=== PATIENT | male | born 2000 | race Caucasian/White ===

== ENCOUNTER 2025-06-20 02:29 | Emergency (ER) | payer SELFPAY ==
[2025-06-20 02:35] VITALS: BP 120/75; PULSE 78; RESP 17; TEMP 36.6; O2SAT 98; BMI 30.7
--- OUTSIDE RECORDS SUMMARY | 2025-06-20 02:40 | XMS_ITS | Patient Health Record ---
Author Organization [facility] Address [address] [place] [address] Care Team Providers Care Pricing Analyst Name Role Phone PAT ALCANTAR Primary Care Provider Reason For Referral No Information Medications Medication SIG (Take, Route, Frequency, Duration) Notes Start Date End Date Status Cyclobenzaprine HCl 10 MG 1 tablet Orall y 2 times a day; Duration: 14 days 02/12/2020 Active Flonase Allergy Relief 50 MCG/ACT 1 spray in each nostril Nasally Once a day; Duration: 30 day(s) 08/26/2016 Not-Taking Social History Cessation Question Answer Notes Date Tobacco Cessation Provided: 02/12/2020 interested in quitting Problems Problem Type SNOMED Code ICD Code Onset Dates Problem Status W/U Status Risk Notes Problem 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
--- NOTE | 2025-06-20 05:08 | W.ED.EAR ---
HPI - Ear Problem General: Chief complaint: Ear Stated complaint: L ear pain and jaw Time Seen by Provider: 06/20/25 03:11 History of Present Illness: 24-year-old male with one week of sinus congestion awoke at midnight today with acute left ear pain that has progressively worsened despite hot and cold compresses. Over the last 30?45 minutes the pain has radiated into the left jaw. Denies prior similar episodes, water exposure, or recent trauma. No self-medication taken. Reports 'bad teeth' mostly on the right side but none currently painful. No fevers, sore throat, nasal discharge beyond prior congestion, cough, shortness of breath, or other complaints. Related Data Previous Rx's ?Medication ?Instructions ?Recorded amoxicillin 875 mg-potassium 1 tab PO Q12H #10 tabs 06/20/25 clavulanate 125 mg tablet Physical Exam Const: COMMON NORMALS: no acute distress, patient oriented x3 and alert HENMT: OTHER: Left ear tympanic membrane is bulging with loss of light reflex and purulence behind the drum consistent with otitis media Eye: COMMON NORMALS: Equal, round and reactive pupils present, EOMs intact bilaterally and no scleral icterus PUPIL: Yes Equal, round and reactive pupils present Resp: COMMON NORMALS: normal respiratory effort and No retractions Cardio: COMMON NORMALS: regular rate, regular rhythm and No murmurs present (Cardio) RATE: regular rate RHYTHM: regular rhythm GI: COMMON NORMALS: Normal to inspection, nondistended, normoactive bowel sounds present, Soft to palpation and non-tender PALPATION: Yes Soft to palpation Neuro: COMMON NORMALS: patient oriented x3 SENSORIUM/ORIENTATION: Yes alert Skin: COMMON NORMALS: no rashes or lesions noted GENERAL SKIN EXAM: no rashes or lesions noted Course Vital Signs: Vital signs: Vital Signs Temperature 97.9 F 06/20/25 02:35 Pulse Rate 78 06/20/25 02:35 Respiratory Rate 17 06/20/25 02:35 Blood Pressure 120/75 06/20/25 02:35 Pulse Oximetry 98 06/20/25 02:35 Oxygen Delivery Me thod Room Air 06/20/25 02:35 MDM - Ear Medical Decision Making Pain is better with ibuprofen, Tylenol, and Augmentin. Exam is consistent with otitis media for which she will be given a course of Augmentin and instructions to use ibuprofen and Tylenol for pain. He shows good understanding and agrees to the plan and will be discharged in stable condition No radiology studies performed this visit Discharge Plan Discharge Patient Disposition: Home Clinical Impression: Otitis media Condition: Stable Prescriptions: New amoxicillin-pot clavulanate 875-125 mg tablet 1 tab PO Q12H Qty: 10 0RF Discharge Orders: Discharge ED (Routine); Ordered 06/20/25 Ordered By: Ajay Shah Discharge Diet: Usual diet Discharge Activity: Increase activity as tolerated Patient Instructions: Otitis Media - Adult, Patient Portal & Eric Instructions Activity Restrictions/Additional Instructions: It is safe to take 600 mg ibuprofen and 1000 mg Tylenol up to 3 times a day to help with pain. Print Language: Portuguese Coding Level of Care Code ED Entry Level Java Developer for Vicki Echols
== END 2025-06-20 05:08 | disposition home or self-care (01) ==
PROVIDERS: Emergency Provider Student in an Organized Health Care Education/Training Program
DX: H66.92 Otitis media, unspecified, left ear (principal)
CPT/HCPCS: 99283; J9999